=== PATIENT | male | born 1975 | race Hispanic/Latino ===

== ENCOUNTER 2017-08-09 17:19 | Inpatient (IN) | payer OTHER ==
--- NOTE | 2017-08-09 18:08 | ED PDOC ---
Arrival/HPI - General Chief Complaint: GI Problem Time Seen by Provider: 08/09/17 17:59 Historian: Patient - History of Present Illness Narrative History of Present Illness (Text): 08/09/17 18:05 This 42 yo male with pmh hemorrhoids, presents to this ED c/o painful hemorrhoids x 3 days. Patient admits intermittent bleeding from hemorrhoid for over a year. Patient stated he was evaluated by Dr. Efraín Mendiola, Surgery early today, who instructed patient to go to ED immediately for admission. Time/Duration: Other (see hpi) Context: Home Past Medical History - Provider Review Nursing Documentation Reviewed: Yes - Infectious Disease Hx of Infectious Diseases: None - Psychiatric Hx Substance Use: No - Anesthesia Hx Anesthesia: No Family/Social History - Physician Review Nursing Documentation Reviewed: Yes Family/Social History: Other (noncontributory) Smoking Status: Current Some Days Smoker Hx Alcohol Use: Yes Frequency of alcohol use: Socially Hx Substance Use: No Allergies/Home Meds Allergies/Adverse Reactions: Allergies No Known Allergies Allergy (Verified 08/09/17 17:39) Home Medications: Home Meds Medication Instructions Recorded Confirmed No Known Home Med 08/09/17 08/09/17 Review of Systems - Review of Systems Constitutional: Normal. absent: Fatigue, Weight Change, Fevers Eyes: Normal ENT: Normal Respiratory: Normal Cardiovascular: Normal Gastrointestinal: Normal, Other (Painful hemorrhoid) Genitourinary Male: Normal Musculoskeletal: Normal Skin: Normal Neurological: Normal Endocrine: Normal Hemo/Lymphatic: Normal Psychiatric: Normal Physical Exam Vital Signs Temp Pulse Resp BP Pulse Ox 08/09/17 17:36 99.4 F 88 16 140/84 97 Temperature: Afebrile Blood Pressure: Normal Pulse: Regular Respiratory Rate: Normal Appearance: Positive for: Well-Appearing, Non-Toxic, Comfortable Pain Distress: None Mental Status: Positive for: Alert and Oriented X 3 - Systems Exam Head: Present: Atraumatic, Normocephalic Pupils: Present: PERRL Extroacular Muscles: Present: EOMI Conjunctiva: Present: Normal Mouth: Present: Moist Mucous Membranes Neck: Present: Normal Range of Motion Respiratory/Chest: Present: Clear to Auscultation, Good Air Exchange. No: Respiratory Distress, Accessory Muscle Use Cardiovascular: Present: Regular Rate and Rhythm, Normal S1, S2. No: Murmurs Abdomen: Present: Normal Bowel Sounds. No: Tenderness, Distention, Peritoneal Signs Rectal: Present: Rectal Tenderness, Hemorrhoids (tender on palpation), Normal Rectal Tone. No: Occult Blood, Gross Blood, Melena, Fissures, Nodule/Mass/ Lesions Back: Present: Normal Inspection. No: CVA Tenderness Upper Extremity: Present: Normal Inspection. No: Cyanosis, Edema Lower Extremity: Present: Normal Inspection. No: Edema Neurological: Present: GCS=15, CN II-XII Intact, Speech Normal Skin: Present: Warm, Dry, Normal Color. No: Rashes Psychiatric: Present: Alert, Oriented x 3, Normal Insight, Normal Concentration Medical Decision Making ED Course and Treatment: 08/09/17 20:[address] Mendiola regarding painful hemorrhoid. he agreed to admit patient on his service. I also spoke with resident care supervisor, who will com to see patient. Re-evaluation Time: 20:08 Reassessment Condition: Re-examined, Improving,but remains with symptoms - Lab Interpretations Lab Results: 08/09/17 15:26 08/09/17 15:26 Lab Results 08/09/17 15:26: Sodium 142, Potassium 5.0, Chloride 103, Carbon Dioxide 26, Anion Gap 18, BUN 24 H, Creatinine 0.8, Est GFR ( Amer) > 60, Est GFR ( Non-Af Amer) > 60, Random Glucose 96, Calcium 10.2, Total Bilirubin 0.4, AST 32 , ALT 26, Alkaline Phosphatase 67, Total Protein 8.6 H, Albumin 4.7, Globulin 3.9, Albumin/Globulin Ratio 1.2 08/09/17 15:26: PT 12.0, INR 1.05, APTT 30.8 08/09/17 15:26: WBC 12.3 H, RBC 6.87 H, Hgb 15.0, Hct 48.5, MCV 70.6 L, MCH 21.8 L, MCHC 30.9 L, RDW 22.4 H, Plt Count 322, Gran % 65.9, Lymph % (Auto) 23.9 , [place] % (Auto) 4.7, Eos % (Auto) 4.8, Baso % (Auto) 0.7, Gran # 8.11 H, Lymph # 2.9, [place] # 0.6, Eos # 0.6, Baso # 0.08 - RAD Interpretation Radiology Orders: 08/09/17 18:01 CHEST PORTABLE [RAD] Stat Disposition/Present on Arrival - Present on Arrival Any Indicators Present on Arrival: No History of DVT/PE: No History of Uncontrolled Diabetes: No Urinary Catheter: No History of Decub. Ulcer: No History Surgical Site Infection Following: None - Disposition Have Diagnosis and Disposition been Completed?: Yes Diagnosis: Hemorrhoids, complicated Disposition: HOSPITALIZED Disposition Time: 20:09 Patient Plan: Admission Condition: STABLE Forms: [employer] ([place]ian)
[2017-08-09 19:46] LABS: BASO # 0.08 K/mm3 (0.0-2.0); BASO % 0.7 % (0.0-3.0); EOS # 0.6 (0.0-0.7); EOS % 4.8 % (1.5-5.0); GRAN # 8.11 (1.4-6.5); GRAN % 65.9 % (50.0-68.0); LYMPH # 2.9 (1.2-3.4); LYMPH % 23.9 % (22.0-35.0); MEAN CELL VOLUME 70.6 fl (80.0-105.0); MEAN CORPUSCULAR HEMOGLOBIN 21.8 pg (25.0-35.0); MEAN CORPUSCULAR HGB CONC 30.9 g/dl (31.0-37.0); MONO # 0.6 (0.1-0.6); MONO % 4.7 % (1.0-6.0); PLATELET COUNT 322 10^3/uL (120.0-450.0); RBC 6.87 10^6/uL (3.5-6.1); RED CELL DISTRIBUTION WIDTH 22.4 % (11.5-14.5); WHITE BLOOD COUNT 12.3 10^3/ul (4.5-11.0)
[2017-08-09 19:52] LABS: INR 1.05 (0.93-1.08); PARTIAL THROMBOPLASTIN TIME 30.8 Seconds (25.1-36.5)
[2017-08-09 20:02] LABS: ALB/GLOB RATIO 1.2 (1.1-1.8); ALBUMIN 4.7 g/dL (3.0-4.8); ALT/SGPT 26 U/L (7-56); AST/SGOT 32 U/L (17-59); BLOOD UREA NITROGEN 24 mg/dL (7-21); CALCIUM 10.2 mg/dL (8.4-10.5); GFR AFRICAN-AMERICAN > 60; GFR NON-AFRICAN AMERICAN > 60
[2017-08-09] MEDS ORDERED: cefTRIAXone 500 MG in Sodium Chloride 0.9% 50 ML IVPB SCH (21:00)
--- NOTE | 2017-08-09 21:17 | CP.PCM.HP ---
History of Present Illness - History of Present Illness History of Present Illness: H&P Surgery- Dr. Mendiola 42M hx of hemorrhoids and hemorrhoidectomy 14 years ago presents to the emergency department with severe rectal pain that started on Wednesday that is worse with sitting or straining. Pain has is progressively worse since Wednesday. patient noticed bright red blood on the toilet paper. Since Wednesday patient has had bowel movements, however no bleeding since then. Currently denies fevers, chills, chest pain, shortness of breath, nausea, vomiting, diarrhea, headaches PMH: external hemorrhoids PSH: tonsillectomy, hemorrhoidectomy (14 years ago) ALL: NKDA SocialHx: Tobacco use 1ppd >10 years, occasional EOTH, no recreational drug use Present on Admission - Present on Admission Any Indicators Present on Admission: No Review of Systems - Review of Systems All systems: reviewed and no additional remarkable complaints except - Constitutional Constitutional: As Per HPI Past Patient History - Infectious Disease Hx of Infectious Diseases: None - Past Social History Smoking Status: Current Some Days Smoker - PSYCHIATRIC Hx Substance Use: No - ANESTHESIA Hx Anesthesia: No Meds Allergies/Adverse Reactions: Allergies Allergy/AdvReac Type Severity Reaction Status Date / Time No Known Allergies Allergy Verified 08/09/17 17:39 Physical Exam - Constitutional Appears: Non-toxic, No Acute Distress - Head Exam Head Exam: ATRAUMATIC - Eye Exam Eye Exam: EOMI. absent: Scleral icterus - ENT Exam ENT Exam: Mucous Membranes Moist - Respiratory Exam Respiratory Exam: NORMAL BREATHING PATTERN. absent: Accessory Muscle Use, Respiratory Distress - Cardiovascular Exam Cardiovascular Exam: +S1, +S2. absent: Bradycardia, Tachycardia - GI/Abdominal Exam GI & Abdominal Exam: Soft. absent: Distended, Firm, Guarding, Hernia, Rigid, Tenderness - Rectal Exam Additional comments: external hemorrhoid Right (9o'clock) 4-5cm; no darkening of skin - Extremities Exam Extremities exam: Positive for: normal inspection. Negative for: calf tenderness - Back Exam Back exam: absent: CVA tenderness (L) - Neurological Exam Neurological exam: Alert, Oriented x3 - Psychiatric Exam Psychiatric exam: Normal Affect - Skin Skin Exam: Dry, Warm Results - Vital Signs Recent Vital Signs: Last Vital Signs Temp 99.4 F 08/09/17 17:36 Pulse 88 08/09/17 17:36 Resp 16 08/09/17 17:36 BP 140/84 08/09/17 17:36 Pulse Ox 97 08/09/17 17:36 - Labs Result Diagrams: 08/09/17 15:26 08/09/17 15:26 Labs: Laboratory Results - last 24 hr 08/09/17 08/09/17 08/09/17 15:26 15:26 15:26 WBC 12.3 H RBC 6.87 H Hgb 15.0 Hct 48.5 MCV 70.6 L MCH 21.8 L MCHC 30.9 L RDW 22.4 H Plt Count 322 Gran % 65.9 Lymph % (Auto) 23.9 [place] % (Auto) 4.7 Eos % (Auto) 4.8 Baso % (Auto) 0.7 Gran # 8.11 H Lymph # 2.9 [place] # 0.6 Eos # 0.6 Baso # 0.08 PT 12.0 INR 1.05 APTT 30.8 Sodium 142 Potassium 5.0 Chloride 103 Carbon Dioxide 26 Anion Gap 18 BUN 24 H Creatinine 0.8 Est GFR ( Amer) > 60 Est GFR (Non-Af Amer) > 60 Random Glucose 96 Calcium 10.2 Total Bilirubin 0.4 AST 32 ALT 26 Alkaline Phosphatase 67 Total Protein 8.6 H Albumin 4.7 Globulin 3.9 Albumin/Globulin Ratio 1.2 Assessment & Plan - Assessment and Plan (Free Text) Assessment: 42M hx of hemorrhoidectomy, presents w/ acute on chronic hemorrhoid recently thrombosed Plan: - NPO @ [place] - IVF Abx - Pain control PRN - f/u AM labs - Plan for OR tomorrow for hemorrhoidectomy - discussed w/ Dr. Mendiola surgical attending Ti Rodriguez PGY1
[2017-08-09] MEDS: HYDROmorphone 0.5 mg/0.5 ml ISec IVP PRN (21:35)
[2017-08-09] MEDS: Lactated Ringer's 1,000 ML IV SCH (21:50)
[2017-08-09] MEDS: metroNIDAZOLE IV 500 mg/100 ml 500 MG/100 ML BAG IVPB SCH (23:49)
[2017-08-10] MEDS: HYDROmorphone 0.5 mg/0.5 ml ISec IVP PRN ×5 (00:49→21:33)
[2017-08-10 01:44] LABS: URINE BILIRUBIN NEGATIVE (NEGATIVE); URINE BLOOD NEGATIVE (NEGATIVE); URINE GLUCOSE (UA) NEGATIVE (NEGATIVE); URINE LEUKOCYTE ESTERASE NEGATIVE Leu/uL (NEGATIVE); URINE NITRATE NEGATIVE (NEGATIVE); URINE PROTEIN 100 mg/dL (<30 mg/dL); URINE UROBILINOGEN 0.2 E.U./dL (<1 E.U./dL)
[2017-08-10 01:50] LABS: URINE APPEARANCE CLEAR (CLEAR); URINE COLOR YELLOW (YELLOW)
[2017-08-10 02:10] LABS: URINE EPITHELIAL CELLS 0 - 2 /hpf (0-5); URINE RBC 0 - 2 /hpf (0-2)
[2017-08-10] MEDS ORDERED: Influenza Vaccine 60 mcg/0.5 mL SYR (4YR UP) IM ONE (05:01)
[2017-08-10] MEDS ORDERED: Pneumococcal 23-Valent Vaccine IM ONE (05:01)
[2017-08-10] MEDS: metroNIDAZOLE IV 500 mg/100 ml 500 MG/100 ML BAG IVPB SCH ×2 (06:16→22:48)
[2017-08-10 06:50] LABS: BASO # 0.08 K/mm3 (0.0-2.0); BASO % 0.9 % (0.0-3.0); EOS # 0.8 (0.0-0.7); EOS % 8.9 % (1.5-5.0); GRAN # 3.99 (1.4-6.5); GRAN % 42.5 % (50.0-68.0); HEMOGLOBIN 13.6 g/dL (14.0-18.0); LYMPH # 3.8 (1.2-3.4); LYMPH % 40.4 % (22.0-35.0); MEAN CORPUSCULAR HEMOGLOBIN 21.6 pg (25.0-35.0); MEAN CORPUSCULAR HGB CONC 30.4 g/dl (31.0-37.0); MONO # 0.7 (0.1-0.6); MONO % 7.3 % (1.0-6.0); PLATELET COUNT 288 10^3/uL (120.0-450.0); RBC 6.31 10^6/uL (3.5-6.1); RED CELL DISTRIBUTION WIDTH 22.5 % (11.5-14.5); WHITE BLOOD COUNT 9.4 10^3/ul (4.5-11.0)
[2017-08-10 07:04] LABS: ALB/GLOB RATIO 1.2 (1.1-1.8); ALBUMIN 4.2 g/dL (3.0-4.8); ALT/SGPT 24 U/L (7-56); AST/SGOT 29 U/L (17-59); BLOOD UREA NITROGEN 22 mg/dL (7-21); GFR AFRICAN-AMERICAN > 60; GFR NON-AFRICAN AMERICAN > 60
[2017-08-10] MEDS: Lactated Ringer's 1,000 ML IV SCH (09:11)
[2017-08-10] MEDS ORDERED: Bupivacaine 0.5% Inj(30mL) ONE (11:29)
[2017-08-10] MEDS ORDERED: Lidocaine 1% Inj (20ml) ONE (11:30)
[2017-08-10] MEDS ORDERED: Absorbable Gelatin Sponge Size 100 ONE (11:47)
[2017-08-10] MEDS ORDERED: Bacitracin Ointment 30 GM TUBE ONE (11:47)
[2017-08-10] MEDS ORDERED: metroNIDAZOLE IV 500 mg/100 ml 500 MG/100 ML BAG ONE (12:08)
[2017-08-10] MEDS ORDERED: Dibucaine 1% Oint(1 oz) TOP PRN (12:23)
[2017-08-10] MEDS ORDERED: HYDROmorphone 0.5 mg/0.5 ml ISec IVP PRN (13:04)
--- NOTE | 2017-08-10 13:10 | PCM.SURG1 ---
Surgeon's Initial Post Op Note - Surgeon's Notes Surgeon: Dr. Chinmay Mendiola Concrete Spreader: Evelyn PGY1 Type of Anesthesia: General Endo, Local Anesthesia Administered By: Dr. Castro Pre-Operative Diagnosis: Thrombosed Hemorrhoids Operative Findings: Internal and External Hemorrhoids Post-Operative Diagnosis: Same Operation Performed: Single Column Hemorrhoidectomy Specimen/Specimens Removed: External Hemorrhoid, Internal Hemorrhoid Estimated Blood Loss: EBL {In ML}: 15 Blood Products Given: N/A Drains Used: No Drains Post-Op Condition: Good Date of Surgery/Procedure: 08/10/17 Time of Surgery/Procedure: 13:11
[2017-08-10] MEDS ORDERED: Lactated Ringer's 1,000 ML IV SCH (13:15)
[2017-08-10] MEDS ORDERED: HYDROmorphone 0.5 mg/0.5 ml ISec ONE (13:18)
--- NOTE | 2017-08-10 13:56 | RAD ---
HISTORY: admission COMPARISON: No prior. FINDINGS: LUNGS: No active pulmonary disease. PLEURA: No significant pleural effusion identified, no pneumothorax apparent. CARDIOVASCULAR: Normal. OSSEOUS STRUCTURES: No significant abnormalities. VISUALIZED UPPER ABDOMEN: Normal. OTHER FINDINGS: None. IMPRESSION: No active disease.
--- NOTE | 2017-08-10 18:37 | CARD ---
APPROVED REPORT EKG Measurement Heart [id number] <Conclusion> Normal sinus rhythm Normal ECG
[2017-08-10] MEDS: POLYETHYLENE GLYCOL 3350 17 GM/Dose PACKET PO SCH (21:01)
[2017-08-11] MEDS: HYDROmorphone 0.5 mg/0.5 ml ISec IVP PRN ×5 (00:35→14:57)
[2017-08-11 05:44] VITALS: BP 109/55; PULSE 56; RESP 56; TEMP 97.9; O2SAT 97
[2017-08-11] MEDS: metroNIDAZOLE IV 500 mg/100 ml 500 MG/100 ML BAG IVPB SCH ×2 (05:56→14:58)
[2017-08-11 06:20] LABS: BASO # 0.01 K/mm3 (0.0-2.0); BASO % 0.1 % (0.0-3.0); EOS # 0.2 (0.0-0.7); EOS % 1.8 % (1.5-5.0); GRAN # 9.31 (1.4-6.5); GRAN % 73.3 % (50.0-68.0); HEMOGLOBIN 12.9 g/dL (14.0-18.0); LYMPH # 2.4 (1.2-3.4); MEAN CELL VOLUME 68.7 fl (80.0-105.0); MEAN CORPUSCULAR HEMOGLOBIN 21.7 pg (25.0-35.0); MEAN CORPUSCULAR HGB CONC 31.5 g/dl (31.0-37.0); MONO # 0.7 (0.1-0.6); MONO % 5.8 % (1.0-6.0); PLATELET COUNT 261 10^3/uL (120.0-450.0); RBC 5.95 10^6/uL (3.5-6.1); RED CELL DISTRIBUTION WIDTH 22.2 % (11.5-14.5); WHITE BLOOD COUNT 12.7 10^3/ul (4.5-11.0)
[2017-08-11 06:40] LABS: BLOOD UREA NITROGEN 16 mg/dL (7-21); CALCIUM 9.7 mg/dL (8.4-10.5); GFR AFRICAN-AMERICAN > 60; GFR NON-AFRICAN AMERICAN > 60
[2017-08-11] MEDS: POLYETHYLENE GLYCOL 3350 17 GM/Dose PACKET PO SCH ×2 (09:40→14:57)
[2017-08-11] MEDS ORDERED: Alum-Mag Hydrox-Simethicone Susp (30 mL) PO ONE (11:17)
--- NOTE | 2017-08-11 13:44 | CP.PCM.PN ---
Subjective - Date & Time of Evaluation Date of Evaluation: 08/11/17 Time of Evaluation: 10:15 - Subjective Subjective: Surgery Progress note. Dr. Mendiola Pt seen and examined at bedside. No acute events overnight. No N/V/D. Does report constipation. No BM since surgery. No new complaints. No F/C. Objective - Vital Signs/Intake and Output Vital Signs (last 24 hours): Temp Pulse Resp BP Pulse Ox 97.9 F 56 L 56 H 109/55 L 97 08/11/17 05:42 08/11/17 05:42 08/11/17 05:42 08/11/17 05:42 08/11/17 05:42 Intake and Output: 08/11/17 08/11/17 06:59 18:59 Intake Total 720 Balance 720 - Medications Medications: Current Medications Dibucaine (Nupercainal 1%) 0 oz TOP Q8H PRN PRN Reason: Hemorrhoid Pain Last Admin: 08/10/17 21:02 Dose: 1 applic Hydromorphone HCl (Dilaudid) 0.5 mg IVP Q3H PRN PRN Reason: Pain, moderate (4-7) Last Admin: 08/11/17 11:15 Dose: 0.5 mg Metronidazole (Flagyl) 500 mg in 100 mls @ 100 mls/hr IVPB Q8 DARON PRN Reason: Protocol Last Admin: 08/11/17 05:56 Dose: 100 mls/hr Ceftriaxone Sodium 500 mg/ (Sodium Chloride) 100 mls @ 100 mls/hr IVPB Q24H DARON PRN Reason: Protocol Last Admin: 08/10/17 22:14 Dose: 100 mls/hr Ondansetron HCl (Zofran Inj) 4 mg IVP Q4 PRN PRN Reason: Nausea/Vomiting Polyethylene Glycol (Miralax) 17 gm PO TID [facility] Last Admin: 08/11/17 09:40 Dose: 17 gm - Labs Labs: 08/11/17 06:00 08/11/17 06:00 PT 12.0 SECONDS (9.4-12.5) 08/09/17 19:26 INR 1.05 (0.93-1.08) 08/09/17 19:26 APTT 30.8 Seconds (25.1-36.5) 08/09/17 19:26 - Constitutional Appears: Well, Non-toxic, No Acute Distress - Head Exam Head Exam: ATRAUMATIC, NORMAL INSPECTION, NORMOCEPHALIC - Eye Exam Eye Exam: EOMI - ENT Exam ENT Exam: Mucous Membranes Moist - Respiratory Exam Respiratory Exam: NORMAL BREATHING PATTERN. absent: Accessory Muscle Use, Respiratory Distress - Cardiovascular Exam Cardiovascular Exam: absent: JVD - GI/Abdominal Exam GI & Abdominal Exam: Soft. absent: Distended, Firm, Guarding, Rigid, Tenderness , Rebound - Rectal Exam Additional comments: No signs of bleeding. Dermabond in place. External skin edges intact and well approximated. - Extremities Exam Extremities Exam: Normal Inspection. absent: Calf Tenderness - Back Exam Back Exam: NORMAL INSPECTION - Neurological Exam Neurological Exam: Alert, Awake, Oriented x3 - Psychiatric Exam Psychiatric exam: Normal Affect, Normal Mood - Skin Skin Exam: Dry, Intact, Normal Color, Warm Assessment and Plan - Assessment and Plan (Free Text) Assessment: 42yo M s/p Internal and external single column hemorrhoidectomy on 08/10/17. - Cleared for discharge from surgical standpoint - Prescription for Percocet and Miralax given - Use OTC pain meds as needed. Use Percocet sparingly - Sitz baths to keep area clean - Follow up with Dr. Mendiola in office in 1 week. Call for appointment Further recs as per Dr. Maury Rivas PGY1 Surgery pager: [phone]
== END 2017-08-11 18:32 | disposition home or self-care (01) | DRG 349 ==
LOC: ED 17:19 → ERH 21:06 → 3RSO 08-10 01:22 → 2A 08-10 15:35
PROVIDERS: ADMIT Surgery; ATTEND Surgery
PROC: 06BY0ZC Excision of Hemorrhoidal Plexus, Open Approach (ICD-10-PCS; principal; 2017-08-10 12:00)
DX: K64.5 Perianal venous thrombosis (principal); K64.8 Other hemorrhoids